=== PATIENT | male | born 1965 | race Caucasian/White ===

== ENCOUNTER 2016-10-04 09:16 | Emergency (ER) | payer OTHER ==
[2016-10-04 09:25] VITALS: RESP 18; TEMP 97.1
--- NOTE | 2016-10-04 11:09 | CT ---
EXAMINATION TYPE: CT brain janethine wo con DATE OF EXAM: 10/04/2016 10:44 AM COMPARISON: NONE HISTORY: 51-year-old male patient hit on top of head and glabella regions with a machine handle CT DLP: Brain 1089.1 and Cervical 503.3 mGycm Automated exposure control for dose reduction was used. Technique: Examination of the head was done in axial plane without intravenous contrast. Coronal and sagittal reconstructions performed. CT of the cervical spine was obtained in axial plane without intravenous injection of contrast mater ial. Coronal and sagittal reformatted images were obtained from the axial views for evaluation of f ractures, spinal alignment and canal. FINDINGS: Head: There is no evidence of acute intracranial hemorrhage, acute ischemic changes, mass, mass-effect, or extra-axial fluid collection. There is no effacement of cerebral sulci or basal subarachnoid cister ns. There is no hydrocephalus. There is no midline shift. Calvin-white matter distinction is preserv ed. There may be a superficial scalp injury along the vertex. No underlying calvarial fracture. Visualize d orbits and globes are intact. There is rightward nasal septal deviation. No nasal bone fracture see n. Mild mucosal thickening floor of the right maxillary sinus and within both ethmoid air cells. Mini mal opacification inferior most left mastoid air cells could represent retained secretions. Cervical spine: No craniocervical junction abnormality, predental space widening, or prevertebral soft tissue swellin g. No acute fracture of the cervical spine. While there is preserved alignment, there is reversal of the normal cervical lordosis along the upper to mid cervical spine. Mild to moderate disc/endplate degenerative change especially at C5-C6 and C6-C7. C3-C4, there is moderate left neuroforaminal stenosis. At C4-C5, there is mild bilateral neuroforaminal stenosis. At C5-C6 and C6/C7, there is variable mild neuroforaminal stenosis. There is a 1.2 cm soft tissue nodule in the posterior right paramedian upper back at the base of the neck which involves the skin. Sagittal and coronal reformatted images confirm above findings. COMBINED IMPRESSION: 1. Suspect some superficial scalp injury along the vertex. No underlying calvarial fracture or acute intracranial abnormality seen. 2. No acute fracture or malalignment of the cervical spine. [id number] spondylotic change. 3. Mild chronic ethmoid and right maxillary sinus disease. 4. Correlate with physical exam findings for a cutaneous/subcutaneous 1.2 cm nodule along the posteri or right paramedian base of the neck. Possible sebaceous cyst.
[2016-10-04] MEDS ORDERED: DIPH,PERTUS(ACELL)TETVAC-LF 0.5 ML VIAL IM ONE (11:15)
--- NOTE | 2016-10-04 11:19 | ED ---
Head Injury HPI - General Chief complaint: Head Injury Stated complaint: Head injury/Machine hit head Time Seen by Provider: 10/04/16 10:35 Source: patient, RN notes reviewed Mode of arrival: ambulatory Limitations: no limitations - History of Present Illness Initial comments: Patient is a 51-year-old male presents emergency room for evaluation of head trauma. Patient states he was hit in the head with a heavy piece of machinery. Patient denies loss consciousness. Patient states he felt little dizzy afterwards. Patient states he has a laceration on top of the scalp with bleeding. Patient denies being on any blood thinners. Patient states he does not remember his last tetanus vaccine was. Patient does state he is having neck pain. Patient denies numbness or tingling in his fingers and toes. Patient denies changes in vision. Patient denies ear pain. Patient denies any other injuries during incident. Patient denies any nausea or vomiting. Place: work - Related Data Home Medications Medication Instructions Recorded Confirmed No Known Home Medications [No 10/04/16 10/04/16 Known Home Medications] Allergies/Adverse reactions: Allergies Allergy/AdvReac Type Severity Reaction Status Date / Time No Known Allergies Allergy Verified 10/04/16 09:45 Review of Systems ROS Statement: Those systems with pertinent positive or pertinent negative responses have been documented in the HPI. ROS Other: All systems not noted in ROS Statement are negative. Past Medical History Past Medical History: Hypertension History of Any Multi-Drug Resistant Organisms: None Reported Past Surgical History: No Surgical Hx Reported Past Psychological History: No Psychological Hx Reported Smoking Status: Never smoker Past Alcohol Use History: Daily Past Drug Use History: None Reported General Exam - General Exam Comments Initial Comments: Sitting in exam room in no acute distress. Limitations: no limitations General appearance: alert, in no apparent distress Expanded Head exam: Present: laceration (5 cm laceration on the top mid-scalp) Eye exam: Present: normal appearance, PERRL, EOMI Pupils: Present: normal accommodation ENT exam: Present: normal exam, normal oropharynx, mucous membranes moist, TM's normal bilaterally, normal external ear exam Neck exam: Present: normal inspection Respiratory exam: Present: normal lung sounds bilaterally. Absent: respiratory distress Cardiovascular Exam: Present: regular rate, normal rhythm, normal heart sounds Extremities exam: Present: normal inspection, full ROM, normal capillary refill Back exam: Present: normal inspection Neurological exam: Present: alert, oriented X3, CN II-XII intact, normal gait Expanded Patient oriented to: Present: person, place, time Speech: Present: fluid speech Cranial nerves: EOM's Intact: Normal, Facial Sensation: Normal Sensory exam: Upper Extremity Light Touch: Normal, Lower Extremity Light Touch: Normal Motor strength exam: RUE: 5, LUE: 5, RLE: 5, LLE: 5 Eye Response: (4) open spontaneously Motor Response: (6) obeys commands Verbal Response: (5) oriented Psychiatric exam: Present: normal affect, normal mood Skin exam: Present: warm, dry, intact, normal color. Absent: rash Course Vital Signs 10/04/16 10/04/16 09:20 12:07 Temperature 97.1 F L 97.1 F L Pulse Rate 72 82 Respiratory 18 18 Rate Blood Pressure 110/63 128/85 O2 Sat by Pulse 96 100 Oximetry Procedures - Laceration Laceration #1 Consent Obtained: verbal consent Indication: laceration Site: scalp Size (cm): 5 Description: linear Depth: simple, single layer Anesthetic Used: lidocaine 1% Anesthesia Technique: local infiltration Amount (mls): 5 Pre-repair: wound explored, irrigated extensively Type of Sutures: other (yanely) Number of Sutures: 6 Patient Tolerated Procedure: well, no complications Medical Decision Making - Medical Decision Making Patient is a 51-year-old male presents to emergency room for head trauma. Brain and C-spine CT shows no acute findings. Patient was updated on tetanus vaccine. Laceration repaired with yanely. Advised patient to follow-up with his primary care provider in 24-48 hours for reevaluation. Advised patient to return in 10-12 days for staple removal. Patient states he understands everything that was discussed with him. Return parameters discussed. Case discussed with Dr. Interiano. - Radiology Data Radiology results: report reviewed, image reviewed Disposition Clinical Impression: Scalp laceration, Head injury Disposition: HOME SELF-CARE Condition: Good Instructions: Laceration (ED), Staple Care (ED), Head Injury (ED) Additional Instructions: Keep wound area clean and dry. Take Tylenol or Motrin as needed for discomfort. Please return in 10-12 days for staple removal. Please follow up with primary care provider in 1-2 days. If any new symptom arises or symptoms worsen, return to ER as soon as possible. Referrals: Lisa Gtz MD [Primary Care Provider] - 1-2 days Time of Disposition: 11:53
[2016-10-04 12:09] VITALS: BP 128/85; PULSE 82
== END 2016-10-04 12:09 | disposition home or self-care (01) ==
LOC: EC 09:16
DX: S01.01XA Laceration without foreign body of scalp, initial encounter (principal); S09.90XA Unspecified injury of head, initial encounter; M54.2 Cervicalgia; Z23 Encounter for immunization; W31.9XXA Contact with unspecified machinery, initial encounter
CPT/HCPCS: 12002; 70450; 72125; 90471; 90715; 99284

== ENCOUNTER → 2018-06-19 | Outpatient (CLI) | payer BC ==
--- NOTE | 2018-06-19 13:02 | XR ---
EXAMINATION TYPE: XR chest 2V DATE OF EXAM: 06/19/2018 COMPARISON: NONE HISTORY: History of tobacco use with cough per order. Routine physical per patient. TECHNIQUE: Frontal and lateral views of the chest are obtained. FINDINGS: There is no focal air space opacity, pleural effusion, or pneumothorax seen. The cardiac silhouette size is within normal limits. Dextroconvex scoliosis centered in the upper lumbar spine is partially imaged. IMPRESSION: No acute cardiopulmonary process.
== END | disposition home or self-care (01) ==
LOC: RADXRYALE 12:48
PROVIDERS: ATTEND Internal Medicine
DX: R05 Cough (principal)
CPT/HCPCS: 71046

== ENCOUNTER → 2020-02-10 | Outpatient (CLI) | payer OTHER ==
--- NOTE | 2020-02-11 09:44 | USB ---
Reason for exam: clinical finding. History: Family history of breast cancer in sister at age 66. Physical Findings: Nurse Summary: firm, movable (nurse dw). US Breast LT Left complete breast ultrasound includes all four quadrants, the retroareolar region and axilla. Finding demonstrates a 10 x 6 x 10mm solid, hypoechoic lesion at the posterior nipple with posterior thru transmission. These results were verbally communicated with the patient and result sheet given to the patient on 02/10/20. ASSESSMENT: Incomplete: need additional imaging evaluation, BI-RAD 0 RECOMMENDATION: Special view mammogram of both breasts.
--- NOTE | 2020-02-11 09:46 | MM ---
Reason for exam: clinical finding. History: Family history of breast cancer in sister at age 66. MG Diagnostic Mammo w CAD MANDY Bilateral CC and MLO view(s) were taken. There are scattered fibroglandular densities. Mild bilateral gynecomastia with asymmetric subareolar nodularity on the left. These results were verbally communicated with the patient and result sheet given to the patient on 02/10/20. ASSESSMENT: Suspicious, BI-RAD 4 RECOMMENDATION: Ultrasound core biopsy of the left breast. Called Dr. Gtz's office with mammographic findings. Biopsy scheduled for 02/19/20 at 11:00. PRELIMINARY REPORT CALLED AND FAXED TO DR. GTZ ON 02/11/20.
== END | disposition home or self-care (01) ==
LOC: RADUSWWP 07:03
PROVIDERS: ATTEND Internal Medicine
DX: N63.20 Unspecified lump in the left breast, unspecified quadrant (principal); R92.8 Other abnormal and inconclusive findings on diagnostic imaging of breast
CPT/HCPCS: 77066

== ENCOUNTER → 2020-02-19 | Day surgery (SDC) | payer OTHER ==
[2020-02-19 10:28] VITALS: RESP 12
--- NOTE | 2020-02-19 11:40 | USB ---
ULTRASOUND GUIDED CORE BIOPSY LEFT BREAST LESION: CLINICAL HISTORY: Request for left breast core biopsy FINDINGS: The procedure was explained to the patient. The risks, complications, benefits and alternatives were discussed and any questions were answered. Informed consent was obtained. Patient was placed supine on the ultrasound table and prepped and draped in the usual sterile fashion. Utilizing a 14 gauge needle, five passes were made into the requested left breast lesion surgical clip placed post procedure. Patient was stable throughout the procedure. Pathology is pending. All elements of maximal barrier and sterile technique were utilized. IMPRESSION: 1. Successful ultrasound guided core biopsy left breast lesion. Pathology Results: Benign LEFT BREAST, ULTRASOUND GUIDED CORE BIOPSY: Benign breast tissue with inflamed granulation tissue, scar/fibrosis, and histiocytes. Recommendation Surgical consult of the left breast. Surgical consult can be considered if a palpable area persists and is symptomatic for possible excision. MTDD
[2020-02-19 11:54] VITALS: BP 124/75; PULSE 58; TEMP 98.6
== END ==
LOC: RADUSWWP 09:57
PROVIDERS: ATTEND Internal Medicine
DX: N61.0 Mastitis without abscess (principal); N60.32 Fibrosclerosis of left breast
CPT/HCPCS: 88305; 19083; A4648; J2001

== ENCOUNTER → 2020-08-20 | Outpatient (CLI) | payer OTHER ==
--- NOTE | 2020-08-20 15:44 | XR ---
EXAMINATION TYPE: XR lumbosacral spine min 4V DATE OF EXAM: 08/20/2020 COMPARISON: None HISTORY: Sciatica right side TECHNIQUE: Three-view lumbar spine FINDINGS: There is a grade 2 spondylolisthesis of L5 anterior on S1. Mild grade 1 retrolisthesis of L 4 on L5 and L3 on L4 is present. Degenerative disc changes are present diffusely throughout the lumbar spine. Facet degenerative changes are present. There 5 lumbar type humeral bodies. Pedicles are intact. 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 Scoliosis is present. IMPRESSION: 1. Scoliosis. 2. Degenerative disc changes. 3. Right 1 Retrolisthesis of L4 on L5 and L3 on L4. 4. Grade 2 spondylolisthesis of L5 L5 anterior on S1
== END | disposition home or self-care (01) ==
LOC: RADXRYALE 15:15
PROVIDERS: ATTEND Internal Medicine
DX: M43.16 Spondylolisthesis, lumbar region (principal); M43.17 Spondylolisthesis, lumbosacral region; M47.816 Spondylosis without myelopathy or radiculopathy, lumbar region; M41.87 Other forms of scoliosis, lumbosacral region
CPT/HCPCS: 72110

== ENCOUNTER → 2021-07-29 | Outpatient (CLI) | payer OTHER | END | disposition home or self-care (01) | LOC: LABWHC1 11:39 | PROVIDERS: ATTEND Internal Medicine | DX: R68.83 Chills (without fever) (principal); R05.9 Cough, unspecified; Z20.828 Contact with and (suspected) exposure to other viral communicable diseases | CPT/HCPCS: U0003; C9803; U0005 ==

== ENCOUNTER → 2021-08-06 | Outpatient (CLI) | payer OTHER ==
--- NOTE | 2021-08-09 10:36 | MM ---
Reason for exam: clinical finding. Last mammogram was performed 1 year and 6 months ago. History: Family history of breast cancer in sister at age 66. Benign US breast needle core LT of the left breast, February 19, 2020. Physical Findings: Nurse Summary: 0.5cm palpable in the left breast (nurse ms). MG Diagnostic Mammo w CAD MANDY Bilateral CC and MLO view(s) were taken. Prior study comparison: February 10, 2020, bilateral MG diagnostic mammo w CAD MANDY. There are scattered fibroglandular densities. Finding: There is a 14 mm circumscribed round mass in the subareolar position of the left breast at palpable. New finding and increase in size since February 10, 2020. These results were verbally communicated with the patient and result sheet given to the patient on 08/06/21. ASSESSMENT: Incomplete: need additional imaging evaluation, BI-RAD 0 RECOMMENDATION: Ultrasound of the left breast.
--- NOTE | 2021-08-09 10:39 | USB ---
Reason for exam: additional evaluation requested from abnormal screening. History: Family history of breast cancer in sister at age 66. Benign US breast needle core LT of the left breast, February 19, 2020. US Breast Limited LT Left limited breast ultrasound including focal area of concern, retroareolar and axilla demonstrates a 1.4 x 0.9 x 1.4cm oval, solid lesion at the posterior nipple, has biopsy clip. These results were verbally communicated with the patient and result sheet given to the patient on 08/06/21. ASSESSMENT: Suspicious, BI-RAD 4 RECOMMENDATION: Ultrasound core biopsy of the left breast. (despite benign biopsy due to increase in size and not typical of gynecomatia) Called Dr. Gtz's office with mammographic findings and has scheduled an appointment for the patient for 08/26/21 at 2:[address] Winn. PRELIMINARY REPORT CALLED AND FAXED TO DR. WINN ON 08/09/21.
== END | disposition home or self-care (01) ==
LOC: RADMAMWWP 12:42
PROVIDERS: ATTEND Internal Medicine
DX: N63.20 Unspecified lump in the left breast, unspecified quadrant (principal)
CPT/HCPCS: 77066

== ENCOUNTER → 2021-08-26 | Outpatient (CLI) | payer OTHER ==
[2021-08-26 14:08] VITALS: BP 132/80; PULSE 77; RESP 18; TEMP 98.5
--- NOTE | 2021-08-26 14:26 | P.GSHP ---
History of Present Illness H&P Date: 08/26/21 Chief Complaint: mass left breast Mann is a 56 year old white male with a complaint of a left breast mass. He is seen in consultation for Dr. Gtz. Some present for approximately a year and three quarters. It is not tender at all times. There is nothing in the [facility] breast. He underwent a core biopsy of the area in approximately February 2020. Pathology was benign. The lesion however has increased in size and is persistent. This time it is not bothering him. He did however have a mammogram and a left breast ultrasound in July 2021. This revealed a lesion posterior to the nipple areolar complex on the left which had increased in size from prior to the biopsy and a core biopsy was recommended. The patient was cutting wide just prior to recognizing the lesion several years ago and questions whether he may have had some trauma to that area. Has not had any recent trauma or infection to that area. Note from Dr. Gtz 07-08-21 reviewed. Caffiene: 3 cups/day nicotine: 1/2 PPD for 35 years chocolate: none diagnosed with diabetes Family History: sister: breast cancer father: colon cancer Surgical History: back removed a cyst Medical History: diabetes HTN Social History: nicotine: 1/2 PPD for 35 years alcohol: 12 pack/week drugs: none - Constitutional Constitutional: Denies chills, Denies fever - EENT Eyes: denies blurred vision, denies pain Ears: deny: decreased hearing, tinnitus Ears, nose, mouth and throat: Denies headache, Denies sore throat - Breasts Breasts: bilateral: as per HPI - Cardiovascular Cardiovascular: Denies chest pain, Denies shortness of breath - Respiratory Respiratory: Denies cough, Denies 7 - Gastrointestinal Gastrointestinal: Denies abdominal pain, Denies diarrhea, Denies nausea, Denies vomiting - Genitourinary (Male) Genitourinary: Denies dysuria, Denies hematuria - Musculoskeletal Musculoskeletal: Denies myalgias - Integumentary Integumentary: Denies pruritus, Denies rash - Neurological Neurological: Denies numbness, Denies weakness - Psychiatric Psychiatric: Denies anxiety, Denies depression - Endocrine Endocrine: Denies fatigue, Denies weight change - Hematologic/Lymphatic Comment: none - Allergic/Immunologic Allergic/Immunologic: Reports as per HPI Past Medical History Past Medical History: Hypertension History of Any Multi-Drug Resistant Organisms: None Reported Past Surgical History: No Surgical Hx Reported Additional Past Surgical History / Comment(s): Cyst removed off back Past Anesthesia/Blood Transfusion Reactions: No Reported Reaction Past Psychological History: No Psychological Hx Reported Past Alcohol Use History: Daily Additional Past Alcohol Use History / Comment(s): "Every other day" Past Drug Use History: None Reported - Past Family History Sister(s) Family Medical History: Cancer Additional Family Medical History / Comment(s): breast cancer Medications and Allergies Home Medications Medication Instructions Recorded Confirmed Type No Known Home Medications 10/04/16 02/19/20 History Allergies Allergy/AdvReac Type Severity Reaction Status Date / Time No Known Allergies Allergy Verified 08/26/21 14:01 Surgical - Exam BMI 27.9 - General no distress - Eyes normal ocular movement - ENT no hearing loss - Neck trachea midline - Respiratory normal respiratory effort, clear to auscultation - Cardiovascular Rhythm: regular Heart Sounds: normal: S1, S2 - Abdomen Abdomen: soft, non tender, no guarding, no rigid, no rebound - Genitourinary no testicular masses of concern - Integumentary normal turgor - Neurologic no disoriented, no combative - Musculoskeletal normal gait - Psychiatric oriented to time, oriented to person, oriented to place, speech is normal, memory intact Breast Exam: inspection: No skin lesions of concern Palpation: Right breast: Multi-positional exam no dominant masses or nodules of concern Right axilla: No adenopathy of concern Left breast: Multi-positional exam posterior to the nipple areolar complex is approximately an 8 mm area of nodularity which is firm Left axilla: No adenopathy of concern Results Mammogram and ultrasound reviewed and independently interpreted Assessment and Plan Assessment: Impression: Left breast palpable Mass. Left breast radiographic abnormality Prior left breast biopsy benign; however the area has increased in size Positive family history of breast cancer with sister Plan: 1. Ultrasound-guided core biopsy left breast lesion 2. follow up after biopsy Cc: Dr. Gtz
== END | disposition home or self-care (01) ==
LOC: WWCWWP 13:54
PROVIDERS: ATTEND Surgery
DX: Z53.9 Procedure and treatment not carried out, unspecified reason (principal)

== ENCOUNTER → 2021-09-29 | Day surgery (SDC) | payer OTHER ==
[2021-09-29 07:46] VITALS: BP 130/67; PULSE 68; RESP 16; TEMP 98.6
--- NOTE | 2021-09-29 11:28 | USB ---
EXAMINATION TYPE: US biopsy breast VAD LT DATE OF EXAM: 09/29/2021 CLINICAL HISTORY: N63, Breast lump/mass. TECHNIQUE: Ultrasound guided vaccuum assisted core biopsy of left breast. COMPARISON: NONE FINDINGS: The ultrasound guided core biopsy procedure was explained to the patient. The risks, benefits, alternatives were discussed. An informed consent was then obtained. Timeout was performed. The patient was placed in supine positioning for imaging and for the procedure. The overlying skin was prepped with betadine and sterilely draped in usual sterile fashion. Lidocaine 1% was used as anesthetic into the skin and deeper breast tissue up to area of concern in the breast. A small skin jeremiah was made with surgical scalpel. Under ultrasound guidance, a 12-gauge vacuum assisted biopsy device was used to obtain 5 core samples. Lesion remaining present, no clip was placed. Previous clip appears to remain present. Good hemostasis was obtained with direct pressure. Discharge instructions were discussed with the patient. The patient will follow up with the referring physician for results. The patient tolerated the procedure well without any immediate complication. The patient was discharged to home in stable condition. IMPRESSION: 1. Successful ultrasound guided biopsy left breast. Recommendations: 1. Recommendations are pending pathology results. Pathology Results: Benign LEFT BREAST AT NIPPLE, ULTRASOUND GUIDED CORE BIOPSY: Gynocomastia. Recommendation Manage clinically. MTDD
== END ==
LOC: RADUSWWP 07:14
PROVIDERS: ATTEND Surgery
DX: N62 Hypertrophy of breast (principal); R92.8 Other abnormal and inconclusive findings on diagnostic imaging of breast
CPT/HCPCS: 88305; 19083; J2001

== ENCOUNTER → 2021-10-08 | Outpatient (CLI) | payer OTHER ==
[2021-10-08 10:50] VITALS: BP 138/79; PULSE 61; RESP 18; TEMP 98.3
--- NOTE | 2021-10-08 11:35 | P.PN ---
Subjective Progress Note Date: 10/08/21 Mann is a 56 year old white male with a complaint of a left breast mass. He is seen in consultation for Dr. Gtz. He noted some fullness for approximately a year and three quarters. It is not tender at all times. There is nothing in the right breast. He underwent a core biopsy of the area in approximately February 2020. Pathology was benign. The lesion however has increased in size and is persistent. This time it is not bothering him. He did however have a mammogram and a left breast ultrasound in July 2021. This revealed a lesion posterior to the nipple areolar complex on the left which had increased in size from prior to the biopsy and a core biopsy was recommended. The patient was cutting wood just prior to recognizing the lesion several years ago and questions whether he may have had some trauma to that area. Has not had any recent trauma or infection to that area. Core biopsy on 09-29-21 revealed gynecomastia Caffiene: 3 cups/day nicotine: 1/2 PPD for 35 years chocolate: none diagnosed with diabetes Family History: sister: breast cancer father: colon cancer Surgical History: back removed a cyst Medical History: diabetes HTN Social History: nicotine: 1/2 PPD for 35 years alcohol: 12 pack/week drugs: none - Constitutional Constitutional: Denies chills, Denies fever - EENT Eyes: denies blurred vision, denies pain Ears: deny: decreased hearing, tinnitus Ears, nose, mouth and throat: Denies headache, Denies sore throat - Breasts Breasts: bilateral: as per HPI - Cardiovascular Cardiovascular: Denies chest pain, Denies shortness of breath - Respiratory Respiratory: Denies cough - Gastrointestinal Gastrointestinal: Denies abdominal pain, Denies diarrhea, Denies nausea, Denies vomiting - Genitourinary (Male) Genitourinary: Denies dysuria, Denies hematuria - Musculoskeletal Musculoskeletal: Denies myalgias - Integumentary Integumentary: Denies pruritus, Denies rash - Neurological Neurological: Denies numbness, Denies weakness - Psychiatric Psychiatric: Denies anxiety, Denies depression - Endocrine Endocrine: Denies fatigue, Denies weight change - Hematologic/Lymphatic Comment: none - Allergic/Immunologic Allergic/Immunologic: Reports as per HPI Objective - Vital Signs Vital signs: Vital Signs Temp 98.3 F 10/08/21 10:44 Pulse 61 01/28/22 10:44 Resp 18 10/08/21 10:44 BP 138/79 10/08/21 10:44 Pulse Ox Intake & Output 10/07/21 10/08/21 10/08/21 18:59 06:59 18:59 Weight 85.275 kg - Constitutional General appearance: Present: cooperative - EENT Eyes: Present: EOMI ENT: Present: hearing grossly normal - Neck Neck: Present: normal ROM - Respiratory Respiratory: bilateral: CTA - Cardiovascular Heart sounds: normal: S1, S2 - Integumentary Integumentary Comment(s): nodule behind the left nipple aerolar complex, about 8 mm in size biopsy site clean and dry - Musculoskeletal Musculoskeletal: Present: gait normal - Psychiatric Psychiatric: Present: A&O x's 3, appropriate affect, intact judgment & insight Assessment and Plan Assessment: Fashion: Symptomatic gynecomastia left breast Plan: Resection symptomatically, asked the left breast Cc: Dr. Gtz
== END ==
LOC: WWCWWP 09:58
PROVIDERS: ATTEND Surgery
DX: Z53.9 Procedure and treatment not carried out, unspecified reason (principal)

== ENCOUNTER → 2021-12-23 | Outpatient (CLI) | payer OTHER ==
[2021-12-23 10:54] VITALS: BP 155/80; PULSE 75; RESP 18; TEMP 98.1
--- NOTE | 2021-12-23 11:24 | P.PN ---
Subjective Progress Note Date: 12/23/21 Principal diagnosis: Symptomatic gynecomastia left breast Mann is a 56 year old white male with a complaint of a left breast mass. He noted some fullness for approximately 2 years. It is tender at a times. There is nothing in the right breast. He underwent a core biopsy of the area in approximately February 2020. Pathology was benign. The lesion however has increased in size and is persistent. This time it is not bothering him. He did however have a mammogram and a left breast ultrasound in July 2021. This revealed a lesion posterior to the nipple areolar complex on the left which had increased in size from prior to the biopsy and a core biopsy was recommended. The patient was cutting wood just prior to recognizing the lesion several years ago and questions whether he may have had some trauma to that area. Has not had any recent trauma or infection to that area. Core biopsy on 09-29-21 revealed gynecomastia The lesion in the left breast is tender and has increased in size. The other breast is not bothering him. There is worse with anything touching that or tactile stimulation. It is increased in size. Radiograph on February 28 x 0.6 x 1 cm increased to 1.4 x 1.4 x 0.9 cm July 2021. Caffiene: 3 cups/day nicotine: 1/2 PPD for 35 years chocolate: none diagnosed with diabetes Family History: sister: breast cancer father: colon cancer Surgical History: back removed a cyst Medical History: diabetes HTN Social History: nicotine: 1/2 PPD for 35 years alcohol: 12 pack/week drugs: none - Constitutional Constitutional: Denies chills, Denies fever - EENT Eyes: denies blurred vision, denies pain Ears: deny: decreased hearing, tinnitus Ears, nose, mouth and throat: Denies headache, Denies sore throat - Breasts Breasts: bilateral: as per HPI - Cardiovascular Cardiovascular: Denies chest pain, Denies shortness of breath - Respiratory Respiratory: Denies cough - Gastrointestinal Gastrointestinal: Denies abdominal pain, Denies diarrhea, Denies nausea, Denies vomiting - Genitourinary (Male) Genitourinary: Denies dysuria, Denies hematuria - Musculoskeletal Musculoskeletal: Denies myalgias - Integumentary Integumentary: Denies pruritus, Denies rash - Neurological Neurological: Denies numbness, Denies weakness - Psychiatric Psychiatric: Denies anxiety, Denies depression - Endocrine Endocrine: Denies fatigue, Denies weight change - Hematologic/Lymphatic Comment: none - Allergic/Immunologic Allergic/Immunologic: Reports as per HPI Objective - Vital Signs Vital signs: Vital Signs Temp 98.1 F 12/23/21 10:51 Pulse 75 12/23/21 10:51 Resp 18 12/23/21 10:51 BP 155/80 12/23/21 10:51 Pulse Ox 96 12/23/21 10:51 Intake & Output 12/22/21 12/23/21 12/23/21 18:59 06:59 18:59 Weight 85.729 kg - Exam BMI 27.9 - Constitutional General appearance: Present: cooperative - EENT Eyes: Present: EOMI ENT: Present: hearing grossly normal - Neck Neck: Present: normal ROM - Respiratory Respiratory: bilateral: CTA - Cardiovascular Rhythm: regular Heart sounds: normal: S1, S2 - Genitourinary Genitourinary Comment(s): from exam 08-26-21 no testicular masses of concern - Integumentary Integumentary: Present: normal turgor - Musculoskeletal Musculoskeletal: Present: gait normal - Psychiatric Psychiatric: Present: A&O x's 3, appropriate affect, intact judgment & insight - Additional findings Additional findings: Breast Exam: inspection: no skin changes of concern palpation: Right breast: No dominant masses or nodules of concern Right axilla: No adenopathy of concern Left breast: Posterior to the nipple areolar complex is a firm tender area approximately 2 x 1 cm in size Left axilla: No adenopathy of concern Assessment and Plan Assessment: Impression: Symptomatic left breast gynecomastia Plan: Resection symptomatic left breast, crekostaster Cc: Dr. Gtz
== END | disposition home or self-care (01) ==
LOC: WWCWWP 10:44
PROVIDERS: ATTEND Surgery
DX: Z53.9 Procedure and treatment not carried out, unspecified reason (principal)

== ENCOUNTER 2022-01-04 07:24 | Day surgery (SDC) | payer OTHER ==
[2021-12-31 11:22] VITALS: BMI 27.8
[~2022-01-04 07:24] MED LIST: DEXAMETHASONE SOD PHOSPHATE 4 MG/ML 1 ML VIAL IV ONE; HEPARIN SODIUM,PORCINE/PF 5,000 UNIT/0.5 ML SYRINGE SQ PRN; HYDROmorphone 0.5 MG/0.5 ML SYRINGE IVP PRN; LACTATED RINGERS 1,000 ML IV SCH; LIDOCAINE 1% (10MG/ML) FOR IV START INTRADERMA PRN; ONDANSETRON 4 MG/2 ML VIAL IVP ONE; Pre Op ABX Message 1 EACH MISC MISCELLANE ONE
[2022-01-04] MEDS ORDERED: LACTATED RINGERS 1,000 ML IV ONE (07:43)
[2022-01-04 07:56] LABS: Glucose,Whole Blood 118 mg/dL (75-99)
[2022-01-04] MEDS ORDERED: MIDAZOLAM 2 MG/2 ML VIAL IVP ONE (08:10)
[2022-01-04] MEDS ORDERED: PHENYLEPHRINE-0.9% NACL SYG 1,000 MCG/10 ML SYRINGE ONE (08:35)
[2022-01-04] MEDS ORDERED: MIDAZOLAM 2 MG/2 ML VIAL ONE (08:35)
[2022-01-04] MEDS ORDERED: LIDOCAINE 2% INJ 20 MG/ML (2 ML VIAL) ONE (08:35)
[2022-01-04] MEDS ORDERED: fentaNYL (PF) 50 MCG/ML 2 ML AMP ONE (08:35)
[2022-01-04] MEDS ORDERED: SUCCINYLCHOLINE CHLORIDE VIAL 200 MG/10 ML VIAL IV ONE (08:35)
[2022-01-04] MEDS ORDERED: PROPOFOL 10 MG/ML 20 ML VIAL IV ONE (08:35)
[2022-01-04] MEDS ORDERED: LIDOCAINE 1% INJ 10MG/ML (20 ML MDV) SQ ONE ×2 (09:07→09:26)
--- NOTE | 2022-01-04 09:30 | P.OP ---
Date of Procedure: 01/04/22 Preoperative Diagnosis: symptomatic nodule posterior to left breast Postoperative Diagnosis: Same/questionable chronic abscess posterior to the left nipple areolar complex Procedure(s) Performed: Excision of tissue posteriorly left nipple areolar complex Anesthesia: MT Surgeon: Erica Winn Estimated Blood Loss (ml): 4 IV fluids (ml): 600 Pathology: other (Tissue posterior to the left nipple areolar complex) Condition: stable Disposition: same day Indications for Procedure: Symptomatic nodularity behind left nipple areolar complex believed to be gynecomastia Operative Findings: Nodularity behind left nipple areolar complex was some purulent fluid Description of Procedure: The patient was taken to the operating room and following induction of anesthesia the left breast was prepped and draped in a sterile fashion. Circumareolar incision was made in the inferior aspect of the areolar. This was carried down to the palpable abnormality. This was a nodular complex which abutted the nipple and upon transecting it posterior to the nipple. There was some purulent appearing fluid present. The nodular area was resected and the wound was well irrigated. Cultures were obtained. The incision was closed using 3-0 Vicryl suture followed by 4-0 Monocryl. The specimen was painted for orientation. The patient tolerated procedure in stable condition. All instrument and sponge counts were correct at the end of the case.
--- NOTE | 2022-01-04 09:34 | P.DS ---
Providers Attending physician: Erica Winn Primary care physician: Lisa Gtz Plan - Discharge Summary Discharge Rx Participant: No New Discharge Prescriptions: No Action Atorvastatin [Lipitor] 40 mg PO DAILY Lisinopril [Zestril] 2.5 mg PO DAILY metFORMIN HCL [Glucophage] 500 mg PO BID Discharge Medication List Atorvastatin [Lipitor] 40 mg PO DAILY 09/29/21 [History] Lisinopril [Zestril] 2.5 mg PO DAILY 09/29/21 [History] metFORMIN HCL [Glucophage] 500 mg PO BID 09/29/21 [History] Follow up Appointment(s)/Referral(s): Erica Winn MD [STAFF PHYSICIAN] - 01/13/22 3:20 pm Activity/Diet/Wound Care/Special Instructions: may shower after [address] for 24 hours after D/C or if taking narcotic pain medicine Discharge Disposition: HOME SELF-CARE
[2022-01-04 09:45] VITALS: TEMP 97.3
[2022-01-04 10:20] VITALS: RESP 18
[2022-01-04 10:34] VITALS: BP 126/86; PULSE 62
== END 2022-01-04 10:56 | disposition home or self-care (01) ==
LOC: OR 07:24
PROVIDERS: ATTEND Surgery
DX: N63.20 Unspecified lump in the left breast, unspecified quadrant (principal); Z79.84 Long term (current) use of oral hypoglycemic drugs; Z79.899 Other long term (current) drug therapy; N62 Hypertrophy of breast
CPT/HCPCS: 19120; 88307; 87070; 87205; 87075; J2250; J0330; J1100; J2405; J2001 ×2; J3010; J2370; J2704; 88305

== ENCOUNTER → 2022-01-13 | Outpatient (CLI) | payer OTHER ==
--- NOTE | 2022-01-13 17:04 | P.PN ---
Progress Note - Text Progress Note Date: 01/13/22 Mr. Conte is a 56-year-old white male status post left breast resection of symptomatic, asterion [id number]. Pathology revealed gynecomastia with adjacent nodular and inflamed fat necrosis with foreign body type reaction focal features suggestive of inclusion cyst rupture. The patient postoperatively has done well. He has no complaints. Incision: Clean and dry No clinical evidence of infection Plan: Follow-up in 6 months Cc: Dr. Gtz
== END | disposition home or self-care (01) ==
LOC: WWCWWP 15:14
PROVIDERS: ATTEND Surgery
DX: Z53.9 Procedure and treatment not carried out, unspecified reason (principal)

== ENCOUNTER → 2022-07-21 | Outpatient (CLI) | payer OTHER ==
[2022-07-21 09:27] VITALS: BP 126/79; PULSE 65; RESP 17; TEMP 97.8
--- NOTE | 2022-07-21 09:56 | P.PN ---
Subjective Progress Note Date: 07/21/22 Principal diagnosis: Status post resection gynecomastia right breast Mann is a 57 year old white male who underwent a left breast resection for gynecomastia in December 2021. Pathology revealed gynecomastia with adjacent nodular inflamed fat necrosis. He does not have any lumps masses or nodules for which she is concerned about at this time. He is not complaining of any testicular lumps or masses. Caffiene: 3 cups/day nicotine: 1/2 PPD for 35 years chocolate: none diagnosed with diabetes Family History: sister: breast cancer father: colon cancer Surgical History: back removed a cyst left breast gynecomastia removed 2021 Medical History: diabetes HTN Social History: nicotine: 1/2 PPD for 35 years alcohol: 12 pack/week drugs: none - Constitutional Constitutional: Denies chills, Denies fever - EENT Eyes: denies blurred vision, denies pain Ears: deny: decreased hearing, tinnitus Ears, nose, mouth and throat: Denies headache, Denies sore throat - Breasts Breasts: bilateral: as per HPI - Cardiovascular Cardiovascular: Denies chest pain, Denies shortness of breath - Respiratory Respiratory: Denies cough - Gastrointestinal Gastrointestinal: Denies abdominal pain, Denies diarrhea, Denies nausea, Denies vomiting - Genitourinary (Male) Genitourinary: Denies dysuria, Denies hematuria - Musculoskeletal Musculoskeletal: Denies myalgias - Integumentary Integumentary: Denies pruritus, Denies rash - Neurological Neurological: Denies numbness, Denies weakness - Psychiatric Psychiatric: Denies anxiety, Denies depression - Endocrine Endocrine: Denies fatigue, Denies weight change - Hematologic/Lymphatic Comment: none - Allergic/Immunologic Allergic/Immunologic: Reports as per HPI Past Medical History Past Medical History: Hypertension History of Any Multi-Drug Resistant Organisms: None Reported Past Surgical History: No Surgical Hx Reported Additional Past Surgical History / Comment(s): Cyst removed off back Past Anesthesia/Blood Transfusion Reactions: No Reported Reaction Past Psychological History: No Psychological Hx Reported Past Alcohol Use History: Daily Additional Past Alcohol Use History / Comment(s): "Every other day" Past Drug Use History: None Reported - Past Family History Sister(s) Family Medical History: Cancer Additional Family Medical History / Comment(s): breast cancer Objective - Vital Signs Vital signs: Vital Signs Temp 97.8 F 07/21/22 09:24 Pulse 65 07/21/22 09:24 Resp 17 07/21/22 09:24 BP 126/79 07/21/22 09:24 Pulse Ox 100 07/21/22 09:24 FiO2 Intake & Output 07/20/22 07/21/22 07/21/22 18:59 06:59 18:59 Weight 77.111 kg - Constitutional General appearance: Present: cooperative - EENT Eyes: Present: edentulous ENT: Present: hearing grossly normal - Neck Neck: Present: normal ROM - Respiratory Details: ronchi bilateral lung bases - Cardiovascular Rhythm: regular Heart sounds: normal: S1, S2 - Gastrointestinal General gastrointestinal: Present: soft - Integumentary Integumentary: Present: normal turgor - Musculoskeletal Musculoskeletal: Present: gait normal - Psychiatric Psychiatric: Present: A&O x's 3, appropriate affect, intact judgment & insight - Additional findings Additional findings: Breast examination: Right breast multi-positional exam glandular tissue no lumps masses or nodules of concern Right axilla: No adenopathy of concern Left breast: Postoperative changes, no lumps masses or nodules of concern Left axilla: No adenopathy of concern Assessment and Plan Assessment: Impression: She status post resection for gynecomastia left breast no evidence of recurrence Plan: Patient will follow with Dr. Gtz to follow here any questions or concerns Cc: Dr. Gtz
== END | disposition home or self-care (01) ==
LOC: WWCWWP 09:10
PROVIDERS: ATTEND Surgery
DX: Z53.9 Procedure and treatment not carried out, unspecified reason (principal)

== ENCOUNTER → 2022-12-26 | Outpatient (CLI) | payer OTHER ==
--- NOTE | 2022-12-26 14:41 | XR ---
EXAMINATION TYPE: XR shoulder complete RT DATE OF EXAM: 12/26/2022 CLINICAL HISTORY: pain TECHNIQUE: Three views of the right shoulder are obtained. COMPARISON: None FINDINGS: There is no acute fracture/dislocation evident. The acromioclavicular and glenohumeral vincent int spaces appear within normal limits. The visualized ribs are intact and unremarkable. IMPRESSION: 1. There is no acute fracture or dislocation. ICD 10 NO FRACTURE, INITIAL EVALUATION
--- NOTE | 2022-12-26 14:41 | XR ---
EXAMINATION TYPE: XR shoulder complete LT DATE OF EXAM: 12/26/2022 CLINICAL HISTORY: pain COMPARISON: NONE TECHNIQUE: Three views of the left shoulder are obtained. FINDINGS: There is no acute fracture/dislocation evident. The acromioclavicular and glenohumeral vincent int spaces appear within normal limits. The visualized ribs are intact and unremarkable. IMPRESSION: 1. There is no acute fracture or dislocation. ICD 10 NO FRACTURE, INITIAL EVALUATION
== END | disposition home or self-care (01) ==
LOC: RADXRYALE 13:08
PROVIDERS: ATTEND Internal Medicine
DX: S49.92XA Unspecified injury of left shoulder and upper arm, initial encounter (principal); M25.511 Pain in right shoulder